=== PATIENT | female | born 1960 | race Caucasian/White ===

== ENCOUNTER 2017-09-18 18:12 | Observation (INO) | payer OTHER ==
[~2017-09-18] VITALS: Ht 154.9 cm; Wt 73.0 kg
[2017-09-18 18:20] VITALS: BP 188/91; PULSE 103; RESP 20; TEMP 98.2; O2SAT 96
--- NOTE | 2017-09-18 19:12 | RADRPT ---
EXAM DATE/TIME: 09/18/2017 18:56 [place] COMPARISON: CHEST SINGLE AP, October 28, 2014, 20:34. INDICATIONS : Shortness of breath, cough, and congestion. MEDICAL HISTORY : Smoker. SURGICAL HISTORY : None. ENCOUNTER: Initial ACUITY: 1 week PAIN SCORE: 2/10 LOCATION: Bilateral chest FINDINGS: PA and lateral views of the chest demonstrate the lungs to be symmetrically aerated without evidence of mass, infiltrate or effusion. The cardiomediastinal contours are unremarkable. Osseous structure s are intact. CONCLUSION: No evidence of acute cardiopulmonary disease. Vinod Mcintyre MD on September 18, 2017 at 19:09 Board Certified Radiologist. This report was verified electronically.
[2017-09-18] MEDS ORDERED: methylPREDNISolone SOD SUCC 125 MG/2 ML VIAL IV PUSH ONE (22:15)
[2017-09-18] MEDS ORDERED: LORazepam 2 MG/ML VIAL IV PUSH ONE (22:15)
[2017-09-18] MEDS ORDERED: SODIUM CHLOR 0.9% 1000 ML INJ 1,000 ML IV ONE (22:15)
[2017-09-18 22:21] VITALS: RESP 14; O2SAT 94
[2017-09-18 22:22] VITALS: BP 130/70; PULSE 86; RESP 18; O2SAT 96
[2017-09-18 22:37] VITALS: O2SAT 95
[2017-09-18] MEDS: RESP: ALBUTEROL 2.5 MG/IPRATROPIUM 0.5 MG NEB (SCH) INH (22:37)
--- NOTE | 2017-09-18 22:45 | PD ---
HPI Chief Complaint: Medical Clearance Time Seen by Provider: 22:08 Travel History International Travel<30 days: No Contact w/Intl Traveler<30days: No Traveled to known affect area: No History of Present Illness HPI 56-year-old female arrives to the ER due to shaking, palpitations diaphoresis and anxiety all of which occurred after she ingested prednisone and amoxicillin a few hours prior to ER arrival. Yesterday she was seen and evaluated in urgent care facility and diagnosed with an upper respiratory tract infection and was prescribed prednisone and amoxicillin. She took the medications yesterday and was asymptomatic thereafter. Evidently there was some concern about the EKG obtained yesterday which I reviewed and does not show any acute ischemic injury pattern or arrhythmia. The patient has no chest pain at the time of evaluation however c/o sob. Patient has a history of smoking at least [id number] history and smokes about 1 pack a day. She has been smoking less over the last few days. PFSH Past Medical History Cancer: Yes (cervical ) Cerebrovascular Accident: Yes (TIA ABOUT 2 YEARS) Hypertension: Yes (MD DISCONTINUE HOME BP MEDS ABOUT 4 YEARS AGO) Tetanus Vaccination: Unknown Influenza Vaccination: No ?: Not Past Surgical History Section: Yes (2) Gynecologic Surgery: Yes ( x2, hysterectomy, cervical ca) Hysterectomy: Yes Other Surgery: Yes (I&D BILATERAL AXILLA FOR MRSA) Social History Alcohol Use: No Tobacco Use: Yes (1/2 PPD) Substance Use: No Allergies-Medications (Allergen,Severity, Reaction): Coded Allergies: No Known Allergies (Unverified Adverse Reaction, Unknown, 09/18/17) Reported Meds & Prescriptions Reported Meds & Active Scripts Active No Active Prescriptions or Reported Medications Review of Systems Except as stated in HPI: all other systems reviewed are Neg General / Constitutional: No: Fever Physical Exam Narrative GENERAL: 56-year-old female pleasant well-nourished well-developed mildly anxious Vital Signs Date Time Temp Pulse Resp B/P (MAP) Pulse Ox O2 Delivery O2 Flow Rate FiO2 09/18/17 22:22 86 18 130/70 (90) 96 Room Air 09/18/17 22:22 85 15 09/18/17 22:21 95 Room Air 09/18/17 22:21 14 94 Room Air 09/18/17 18:20 98.2 103 20 188/91 (123) 96 SKIN: Warm and dry. HEAD: Atraumatic. Normocephalic. EYES: Pupils equal and round. No scleral icterus. No injection or drainage. ENT: No nasal bleeding or discharge. Mucous membranes pink and moist. NECK: Trachea midline. No JVD. CARDIOVASCULAR: Regular rate and rhythm. RESPIRATORY: Lungs are clear. Respiratory rate is about 20. GASTROINTESTINAL: Abdomen soft, non-tender, nondistended. Hepatic and splenic margins not palpable. MUSCULOSKELETAL: Extremities without clubbing, cyanosis, or edema. No obvious deformities. NEUROLOGICAL: Awake and alert. No obvious cranial nerve deficits. Motor grossly within normal limits. Five out of 5 muscle strength in the arms and legs. Normal speech. PSYCHIATRIC: Appropriate mood and affect; insight and judgment normal. Data Data Last Documented VS Vital Signs Date Time Temp Pulse Resp B/P (MAP) Pulse Ox O2 Delivery O2 Flow Rate FiO2 09/18/17 22:37 95 21 09/18/17 22:22 86 18 130/70 (90) Room Air 09/18/17 18:20 98.2 Orders Orders Electrocardiogram (09/18/17 18:43) Complete Blood Count With Diff (09/18/17 18:43) Basic Metabolic Panel (Bmp) (09/18/17 18:43) Ckmb (Isoenzyme) Profile (09/18/17 18:43) Troponin I (09/18/17 18:43) Iv Access Insert/Monitor (09/18/17 18:43) Ecg Monitoring (09/18/17 18:43) Oxygen Administration (09/18/17 18:43) Oximetry (09/18/17 18:43) Chest, Pa & Lat (09/18/17 18:43) Sodium Chlor 0.9% 1000 Ml Inj (Ns 1000 M (09/18/17 22:15) Methylprednisolone So Succ Inj (Solumedr (09/18/17 22:15) Albuterol-Ipratropium Neb (Duoneb Neb) (09/18/17 22:15) Lorazepam Inj (Ativan Inj) (09/18/17 22:15) CKMB (09/18/17 20:30) CKMB% (09/18/17 20:30) Albuterol Neb (Albuterol Neb) (09/19/17 00:00) Nitroglycerin Sl (Nitrostat Sl) (09/19/17 00:00) Labs Laboratory Tests Test 09/18/17 20:30 White Blood Count 14.6 TH/MM3 Red Blood Count 4.73 MIL/MM3 Hemoglobin 15.4 GM/DL Hematocrit 44.4 % Mean Corpuscular Volume 93.8 FL Mean Corpuscular Hemoglobin 32.5 PG Mean Corpuscular Hemoglobin Concent 34.6 % Red Cell Distribution Width 12.7 % Platelet Count 215 TH/MM3 Mean Platelet Volume 9.8 FL Neutrophils (%) (Auto) 86.6 % Lymphocytes (%) (Auto) 11.4 % Monocytes (%) (Auto) 1.7 % Eosinophils (%) (Auto) 0.1 % Basophils (%) (Auto) 0.2 % Neutrophils # (Auto) 12.6 TH/MM3 Lymphocytes # (Auto) 1.7 TH/MM3 Monocytes # (Auto) 0.2 TH/MM3 Eosinophils # (Auto) 0.0 TH/MM3 Basophils # (Auto) 0.0 TH/MM3 CBC Comment DIFF FINAL Differential Comment Blood Urea Nitrogen 16 MG/DL Creatinine 0.82 MG/DL Random Glucose 146 MG/DL Calcium Level 9.0 MG/DL Sodium Level 141 MEQ/L Potassium Level 4.1 MEQ/L Chloride Level 107 MEQ/L Carbon Dioxide Level 24.0 MEQ/L Anion Gap 10 MEQ/L Estimat Glomerular Filtration Rate 73 ML/MIN Total Creatine Kinase 122 U/L Creatine Kinase MB 2.9 NG/ML Troponin I LESS THAN 0.02 NG/ML MDM Medical Decision Making Medical Screen Exam Complete: Yes Emergency Medical Condition: Yes Medical Record Reviewed: Yes Differential Diagnosis Pneumonia, anxiety, steroid side effect, side effect amoxicillin, URI Narrative Course EKG shows sinus rhythm at a rate of 81 normal axis intervals CBC & BMP Diagram 09/18/17 20:30 Calcium Level 9.0 Chest x-ray shows no dense consolidation or acute pulmonary disease. The patient received 2 rounds of albuterol here and was fairly dyspneic thereafter. She ambulated in the pod. The family member attached a nonrebreather to oxygen and kept on oxygen for about 30 or 40 minutes prior to the ambulation. Upon return to her bed the O2 sat was 94% however she was quite dyspneic with a heart rate of about 120. Patient will be kept here for serial enzymes and breathing treatments as needed. Case was discussed with Dr. Bravo. Diagnosis Primary Impression: Chest pain, atypical Additional Impressions: Anxiety Dyspnea and respiratory abnormalities Palpitations Admitting Information Admitting Physician Requests: Observation Scripts No Active Prescriptions or Reported Meds Rodri Hendrickson MD Sep 18, 2017 22:45
[2017-09-18 23:00] LABS: AUTOMATED NEUTROPHIL # 12.6 TH/MM3 (1.8-7.7); BASOPHIL % 0.2 % (0.0-2.0); EOSINOPHIL % 0.1 % (0.0-4.0); HEMATOCRIT 44.4 % (35.0-46.0); HEMOGLOBIN 15.4 GM/DL (11.6-15.3); LYMPH % 11.4 % (9.0-44.0); LYMPHOCYTE # 1.7 TH/MM3 (1.0-4.8); MEAN CELL VOLUME 93.8 FL (80.0-100.0); MEAN CORPUSCULAR HEMOGLOBIN 32.5 PG (27.0-34.0); MEAN CORPUSCULAR HGB CONC 34.6 % (32.0-36.0); MEAN PLATELET VOLUME 9.8 FL (7.0-11.0); MONO % 1.7 % (0.0-8.0); MONOCYTE # 0.2 TH/MM3 (0-0.9); NEUT % 86.6 % (16.0-70.0); PLATELET COUNT 215 TH/MM3 (150-450); RED BLOOD COUNT 4.73 MIL/MM3 (4.00-5.30); RED CELL DISTRIBUTION WIDTH 12.7 % (11.6-17.2); WHITE BLOOD COUNT 14.6 TH/MM3 (4.0-11.0)
[2017-09-18 23:14] LABS: BLOOD UREA NITROGEN 16 MG/DL (7-18); CHLORIDE 107 MEQ/L (98-107); CREATININE 0.82 MG/DL (0.50-1.00); GLOMERULAR FILTRATION RATE 73 ML/MIN (>89); GLUCOSE,RANDOM 146 MG/DL (74-106); SODIUM (NA) 141 MEQ/L (136-145)
[2017-09-18 23:17] LABS: TROPONIN I LESS THAN 0.02 NG/ML (0.02-0.05)
[2017-09-19] VITALS (15 sets, daily range): BP systolic 89–124; BP diastolic 48–80; PULSE 86–113; RESP 16–20; TEMP 97.8–98.6; O2SAT 93–98
[2017-09-19] MEDS ORDERED: NITROGLYCERIN 0.4 MG SL 25 TABS/BTL SL ONE
[2017-09-19] MEDS ORDERED: RESP: ALBUTEROL 2.5 MG/3 ML NEB (SCH) INH ONE
[2017-09-19] MEDS ORDERED: ONDANSETRON HCL 4 MG/2 ML VIAL IVP PRN (02:15)
[2017-09-19] MEDS ORDERED: NALOXONE HCL 0.4 MG/ML AMP IV PUSH PRN (02:15)
[2017-09-19] MEDS: RESP: ALBUTEROL 2.5 MG/IPRATROPIUM 0.5 MG NEB (SCH) NEB ×4 (03:05→20:19)
[2017-09-19 03:31] LABS: AUTOMATED NEUTROPHIL # 9.7 TH/MM3 (1.8-7.7); BASOPHIL % 0.2 % (0.0-2.0); HEMOGLOBIN 14.4 GM/DL (11.6-15.3); LYMPH % 7.8 % (9.0-44.0); LYMPHOCYTE # 0.8 TH/MM3 (1.0-4.8); MEAN CELL VOLUME 95.5 FL (80.0-100.0); MEAN CORPUSCULAR HEMOGLOBIN 32.8 PG (27.0-34.0); MEAN CORPUSCULAR HGB CONC 34.4 % (32.0-36.0); MEAN PLATELET VOLUME 9.4 FL (7.0-11.0); MONO % 0.8 % (0.0-8.0); MONOCYTE # 0.1 TH/MM3 (0-0.9); NEUT % 91.2 % (16.0-70.0); PLATELET COUNT 180 TH/MM3 (150-450); RED BLOOD COUNT 4.39 MIL/MM3 (4.00-5.30); RED CELL DISTRIBUTION WIDTH 12.7 % (11.6-17.2); WHITE BLOOD COUNT 10.6 TH/MM3 (4.0-11.0)
--- NOTE | 2017-09-19 04:37 | HHI.HP ---
HPI Service [facility] Primary Care Physician Unknown Admission Diagnosis Dyspnea; Palpitations Diagnoses: Travel History International Travel<30 Days: No Contact w/Intl Traveler <30 Da: No Traveled to Known Affected Are: No History of Present Illness 56-year-old female with a past medical history significant for hyperlipidemia presents to the emergency department for evaluation of chest pain/palpitations. The patient was seen by urgent care on 09/17 where she was diagnosed with bronchitis and given a prescription for amoxicillin and prednisone. The patient reports compliance with these medications for 2 days and on the second day, yesterday, after taking both medications the patient noticed chest pain and heaviness with palpitations. The patient also reports that she had an abnormal EKG at the urgent care center. She states she was instructed to come to the emergency department from urgent care, however did not feel this was necessary at the time. She denies nausea/vomiting. No shortness of breath. No fevers/chills. URI symptoms since mid July. Review of Systems Except as stated in HPI: all other systems reviewed are Neg Past Family Social History Past Medical History Hyperlipidemia Past Surgical History 2 Hysterectomy Reported Medications Reported Meds & Active Scripts Active No Active Prescriptions or Reported Medications Allergies: Coded Allergies: No Known Allergies (Unverified Allergy, Unknown, 09/19/17) Family History Both parents with CAD, mom with diabetes Social History Smokes approximately one pack per day. Denies alcohol and illicit drugs. Physical Exam Vital Signs Vital Signs Date Time Temp Pulse Resp B/P (MAP) Pulse Ox O2 Delivery O2 Flow Rate FiO2 09/19/17 02:52 18 09/19/17 02:30 97.8 109 20 105/55 (72) 94 09/19/17 02:12 106 16 89/48 (62) 93 Nasal Cannula 2.00 09/19/17 00:00 106 20 116/80 (92) 94 Room Air 09/18/17 22:37 95 21 09/18/17 22:22 86 18 130/70 (90) 96 Room Air 09/18/17 22:22 85 15 09/18/17 22:21 95 Room Air 09/18/17 22:21 14 94 Room Air 09/18/17 18:20 98.2 103 20 188/91 (123 96 Physical Exam GENERAL: female lying in bed SKIN: No rashes, ecchymoses or lesions. Cool and dry. HEAD: Atraumatic. Normocephalic. No temporal or scalp tenderness. EYES: Pupils equal round and reactive. Extraocular motions intact. No scleral icterus. No injection or drainage. ENT: Nose without bleeding, purulent drainage or septal hematoma. Throat without erythema, tonsillar hypertrophy or exudate. Uvula midline. Airway patent. NECK: Trachea midline. No JVD or lymphadenopathy. Supple, nontender, no meningeal signs. CARDIOVASCULAR: Regular rate and rhythm without murmurs, gallops, or rubs. RESPIRATORY: Clear to auscultation. Breath sounds equal bilaterally. No wheezes , rales, or rhonchi. GASTROINTESTINAL: Abdomen soft, non-tender, nondistended. No hepato-splenomegaly , or palpable masses. No guarding. MUSCULOSKELETAL: Extremities without clubbing, cyanosis, or edema. No joint tenderness, effusion, or edema noted. No calf tenderness. NEUROLOGICAL: Awake and alert. Cranial nerves II through XII intact. Motor and sensory grossly within normal limits. Normal speech. Laboratory Laboratory Tests Test 09/18/17 20:30 09/19/17 03:21 White Blood Count 14.6 10.6 Red Blood Count 4.73 4.39 Hemoglobin 15.4 14.4 Hematocrit 44.4 42.0 Mean Corpuscular Volume 93.8 95.5 Mean Corpuscular Hemoglobin 32.5 32.8 Mean Corpuscular Hemoglobin Concent 34.6 34.4 Red Cell Distribution Width 12.7 12.7 Platelet Count 215 180 Mean Platelet Volume 9.8 9.4 Neutrophils (%) (Auto) 86.6 91.2 Lymphocytes (%) (Auto) 11.4 7.8 Monocytes (%) (Auto) 1.7 0.8 Eosinophils (%) (Auto) 0.1 0.0 Basophils (%) (Auto) 0.2 0.2 Neutrophils # (Auto) 12.6 9.7 Lymphocytes # (Auto) 1.7 0.8 Monocytes # (Auto) 0.2 0.1 Eosinophils # (Auto) 0.0 0.0 Basophils # (Auto) 0.0 0.0 CBC Comment DIFF FINAL DIFF FINAL Differential Comment Blood Urea Nitrogen 16 Creatinine 0.82 Random Glucose 146 Calcium Level 9.0 Sodium Level 141 Potassium Level 4.1 Chloride Level 107 Carbon Dioxide Level 24.0 Anion Gap 10 Estimat Glomerular Filtration Rate 73 Total Creatine Kinase 122 Creatine Kinase MB 2.9 Troponin I LESS THAN 0.02 LESS THAN 0.02 Result Diagram: 09/19/17 0321 09/18/172029 Caprini VTE Risk Assessment Caprini VTE Risk Assessment: No/Low Risk (score <= 1) Caprini Risk Assessment Model Point Value = 1 Point Value = 2 Point Value = 3 Point Value = 5 Age 41-60 Minor surgery BMI > 25 kg/m2 Swollen legs Varicose veins or History of unexplained or recurrent spontaneous Oral contraceptives or hormone replacement Sepsis (< 1 month) Serious lung disease, including pneumonia (< 1 month) Abnormal pulmonary function Acute myocardial infarction Congestive heart failure (< 1 month) History of inflammatory bowel disease Medical patient at bed rest Age 61-74 Arthroscopic surgery Major open surgery (> 45 min) Laparoscopic surgery (> 45 min) Malignancy Confined to bed (> 72 hours) Immobilizing plaster cast Central venous access Age >= 75 History of VTE Family history of VTE Factor V Leiden Prothrombin [id number] Lupus anticoagulant Anticardiolipin antibodies Elevated serum homocysteine Heparin-induced thrombocytopenia Other congenital or acquired thrombophilia Stroke (< 1 month) Elective arthroplasty Hip, pelvis, or leg fracture Acute spinal cord injury (< 1 month) Prophylaxis Regimen Total Risk Factor Score Risk Level Prophylaxis Regimen 0-1 Low Early ambulation 2 Moderate Order ONE of the following: *Sequential Compression Device (SCD) *Heparin 5000 units SQ BID 3-4 Higher Order ONE of the following medications: *Heparin 5000 units SQ TID *Enoxaparin/Lovenox 40 mg SQ daily (WT < 150 kg, CrCl > 30 mL/min) *Enoxaparin/Lovenox 30 mg SQ daily (WT < 150 kg, CrCl > 10-29 mL/min) *Enoxaparin/Lovenox 30 mg SQ BID (WT < 150 kg, CrCl > 30 mL/min) AND/OR *Sequential Compression Device (SCD) 5 or more Highest Order ONE of the following medications: *Heparin 5000 units SQ TID (Preferred with Epidurals) *Enoxaparin/Lovenox 40 mg SQ daily (WT < 150 kg, CrCl > 30 mL/min) *Enoxaparin/Lovenox 30 mg SQ daily (WT < 150 kg, CrCl > 10-29 mL/min) *Enoxaparin/Lovenox 30 mg SQ BID (WT < 150 kg, CrCl > 30 mL/min) AND *Sequential Compression Device (SCD) Assessment and Plan Assessment and Plan Assessment/plan: 1. Chest pain/palpitations Likely response to oral steroids ACS rule out pending; serial troponins/EKGs EKG shows sinus rhythm without ST segment elevations or depressions, personally reviewed Initial troponin negative x 2 Telemetry 2. Shortness of breath/upper respiratory infection Likely secondary to viral upper respiratory infection Influenza pending Chest x-ray negative for acute disease, personally reviewed Leukocytosis has resolved 3. Hyperlipidemia Patient reports she is not on any home medications at this time because she did not refill her prescription Counseled patient to follow-up with her PCP and start taking her statin FEN Heart healthy diet Electrolytes: Monitor and replete when necessary SCDs Pushpa Bravo MD Sep 19, 2017 04:36
[2017-09-19] MEDS: guaiFENesin E.R. 600 MG TAB PO SCH ×2 (10:28→23:12)
[2017-09-19 15:19] LABS: CHOLESTEROL/ HDL RATIO 5.15 RATIO; HDL CHOLESTEROL 44.8 MG/DL (40.0-60.0)
--- NOTE | 2017-09-19 15:26 | HHI.PR ---
Subjective Remarks Follow-up visit chest pain, cough, tobacco use. Patient seen and examined today sitting in bed. Patient reports she continues to have cough, chest pain and palpitations especially post nebulization. She also mentioned increased anxiety post nebulization. Patient states that she has been coughing. Denies any fever, chills, nausea, vomiting, diarrhea. Reports generalized fatigue. States she is unable to "walk from the with wheelchair to her bed without feeling very very tired." Denies dysuria, hematuria. Occasional S OB and dyspnea on exertion. States she is not expectorating anything from her cough. Objective Vitals Vital Signs Date Time Temp Pulse Resp B/P (MAP) Pulse Ox O2 Delivery O2 Flow Rate FiO2 09/19/17 12:27 98.0 113 20 119/58 (78) 96 09/19/17 08:07 98 Nasal Cannula 2.00 09/19/17 08:00 98 Nasal Cannula 2.00 09/19/17 08:00 97.9 95 16 111/57 (75) 95 09/19/17 06:55 105 09/19/17 04:45 96 Nasal Cannula 2.00 09/19/17 04:00 98.0 102 20 101/50 (67) 96 09/19/17 02:52 18 09/19/17 02:30 97.8 109 20 105/55 (72) 94 09/19/17 02:12 106 16 89/48 (62) 93 Nasal Cannula 2.00 09/19/17 00:00 106 20 116/80 (92) 94 Room Air 09/18/17 22:37 95 21 09/18/17 22:22 86 18 130/70 (90) 96 Room Air 09/18/17 22:22 85 15 09/18/17 22:21 95 Room Air 09/18/17 22:21 14 94 Room Air 09/18/17 18:20 98.2 103 20 188/91 (123) 96 I/O 09/18/17 09/18/17 09/18/17 09/19/17 09/19/17 09/19/17 07:00 15:00 23:00 07:00 15:00 23:00 Intake Total 1000 ml Balance 1000 ml Intake IV Total 1000 ml Result Diagram: 09/19/17 0321 09/18/172029 Imaging Last Impressions Chest X-Ray 09/18/17 1301 Signed Impressions: Service Date/Time: September 18:56 - CONCLUSION: No evidence of acute cardiopulmonary disease. Vinod Mcintyre MD Objective Remarks GENERAL: This is a well-nourished, well-developed patient, in no apparent distress. SKIN: Warm and dry. HEENT: Normocephalic. Pupils equal round and reactive. Nose without bleeding. Airway patent. NECK: Trachea midline. CARDIOVASCULAR: Tachycardia without murmurs, gallops, or rubs. RESPIRATORY: Bronchial breath sounds. No wheezes, rales, or rhonchi. GASTROINTESTINAL: Abdomen soft, non-tender, nondistended. Bowel Sounds normoactive x4. MUSCULOSKELETAL: Extremities without clubbing, cyanosis, or edema. NEUROLOGICAL: Awake and alert. Oriented to time, place, person. No focal neuro deficit. Moves all extremities. Normal speech. A/P Problem List: (1) Chest pain, atypical ICD Code: R07.89 - Chest pain, atypical Status: Acute (2) Anxiety ICD Code: F41.9 - Anxiety Status: Acute (3) Dyspnea and respiratory abnormalities ICD Code: R06.00 - Dyspnea, unspecified; R06.89 - Other abnormalities of breathing Status: Acute (4) Palpitations ICD Code: R00.2 - Palpitations Status: Acute Assessment and Plan Patient is 56-year-old female with a past medical history significant for hyperlipidemia presents hospital for evaluation of chest pain/palpitations. Chest pain, palpitations Rule out ACS -Palpitations possibly responds to steroid medication and albuterol nebs/ -Serial troponin negative -EKG reviewed sinus rhythm without ST segment elevations or depressions. -Continue telemetry for now -Appears to be musculoskeletal in nature as it is aggravated by coughing, reproducible with palpation. Shortness of breath, upper respiratory infection Underlying COPD, with possible exacerbation secondary to infection This could possibly be viral respiratory infection Generalized fatigue -Check influenza -Chest x-ray showed no acute disease -Leukocytosis on initial labs, repeat labs it has resolved -Start Symbicort twice daily, nicotine patch -Duo nebs, will decrease albuterol dose -Prednisone 20 mg twice daily 5 days -Monitor respiratory status. O2 nasal cannula keep O2 sat greater than 90% -PT eval and treat Hyperlipidemia -Start atorvastatin 40 mg daily if LFTs are within normal DVT prop SCDs Discharge Planning When clinically improved. Lisa Holm Sep 19, 2017 15:26
[2017-09-19] MEDS ORDERED: ACETAMINOPHEN 325 MG TAB PO PRN (16:00)
[2017-09-19] MEDS ORDERED: RESP: ALBUTEROL 2.5 MG/IPRATROPIUM 0.5 MG NEB (PRN) NEB (16:30)
[2017-09-19] MEDS: NICOTINE 21 MG/24 HR PATCH T-DERMAL SCH (17:31)
[2017-09-19 19:41] LABS: ALBUMIN 3.8 GM/DL (3.4-5.0); DIRECT BILIRUBIN ADULT 0.1 MG/DL (0.0-0.2)
[2017-09-19 19:43] LABS: INDIRECT BILIRUBIN 0.1 MG/DL (0.0-0.8); TOTAL BILIRUBIN ADULT 0.2 MG/DL (0.2-1.0); TOTAL PROTEIN 7.2 GM/DL (6.4-8.2)
[2017-09-19] MEDS: predniSONE 20 MG TAB PO SCH (23:12)
[2017-09-19] MEDS: BUDESONIDE-FORMOTEROL 160/4.5 MCG INHALER INH SCH (23:13)
[2017-09-20] MEDS: RESP: ALBUTEROL 2.5 MG/IPRATROPIUM 0.5 MG NEB (SCH) NEB ×2 (03:08→07:24)
[2017-09-20 03:57] VITALS: BP 107/53; PULSE 94; RESP 17; TEMP 98.4; O2SAT 95
[2017-09-20 04:00] VITALS: PULSE 95
[2017-09-20 07:15] VITALS: PULSE 92
[2017-09-20 08:09] VITALS: BP 138/62; PULSE 110; RESP 20; TEMP 98.6; O2SAT 98
[2017-09-20] MEDS ORDERED: REMOVE OLD PATCH T-DERMAL SCH (09:00)
[2017-09-20] MEDS: guaiFENesin E.R. 600 MG TAB PO SCH (09:09)
[2017-09-20] MEDS: predniSONE 20 MG TAB PO SCH (09:09)
[2017-09-20] MEDS: NICOTINE 21 MG/24 HR PATCH T-DERMAL SCH (09:10)
[2017-09-20] MEDS: BUDESONIDE-FORMOTEROL 160/4.5 MCG INHALER INH SCH (09:11)
[2017-09-20] MEDS ORDERED: Budeson-Formot 160-4.5 Mcg Inh INH (09:31)
[2017-09-20] MEDS ORDERED: NICO21DI25 T-DERMAL (09:31)
[2017-09-20] MEDS ORDERED: Remove Old Patch T-DERMAL (09:31)
[2017-09-20] MEDS ORDERED: PRED20 PO (09:31)
[2017-09-20] MEDS ORDERED: guaiFENesin ER PO (09:31)
--- NOTE | 2017-09-20 09:35 | HHI.DCPOC ---
Discharge Care Plan Diagnosis: (1) Chest pain, atypical (2) Anxiety (3) Dyspnea and respiratory abnormalities (4) Palpitations Your Health Problems Are: Shortness of Breath Goals to Promote Your Health * To prevent worsening of your condition and complications * To maintain your health at the optimal level Directions to Meet Your Goals Take your medications as prescribed Follow your dietary instruction Follow activity as directed Keep your appointments as scheduled Take your immunizations and boosters as scheduled If your symptoms worsen call your PCP, if no PCP go to Urgent Care Center or Emergency Room Smoking is Dangerous to Your Health. Avoid second hand smoke Call the 24-hour hour crisis hotline for domestic abuse at Lisa Holm Sep 20, 2017 09:34
[2017-09-20 10:11] LABS: AUTOMATED NEUTROPHIL # 13.3 TH/MM3 (1.8-7.7); BASOPHIL % 0.1 % (0.0-2.0); HEMATOCRIT 44.8 % (35.0-46.0); HEMOGLOBIN 15.1 GM/DL (11.6-15.3); LYMPH % 12.3 % (9.0-44.0); MEAN CELL VOLUME 96.4 FL (80.0-100.0); MEAN CORPUSCULAR HEMOGLOBIN 32.5 PG (27.0-34.0); MEAN CORPUSCULAR HGB CONC 33.7 % (32.0-36.0); MONO % 4.8 % (0.0-8.0); MONOCYTE # 0.8 TH/MM3 (0-0.9); NEUT % 82.8 % (16.0-70.0); PLATELET COUNT 205 TH/MM3 (150-450); RED BLOOD COUNT 4.64 MIL/MM3 (4.00-5.30); RED CELL DISTRIBUTION WIDTH 12.7 % (11.6-17.2)
--- NOTE | 2017-09-20 10:30 | HHI.DS ---
Discharge Summary Admission Date Sep 19, 2017 at 00:31 Discharge Date: Sep 20, 2017 Admitting Diagnosis Dyspnea; Palpitations (1) Chest pain, atypical ICD Code: R07.89 - Chest pain, atypical Status: Acute (2) Anxiety ICD Code: F41.9 - Anxiety Status: Acute (3) Dyspnea and respiratory abnormalities ICD Code: R06.00 - Dyspnea, unspecified; R06.89 - Other abnormalities of breathing Status: Acute (4) Palpitations ICD Code: R00.2 - Palpitations Status: Acute Procedures none Brief History - From Admission 56-year-old female with a past medical history significant for hyperlipidemia presents to the emergency department for evaluation of chest pain/palpitations. The patient was seen by urgent care on 09/17 where she was diagnosed with bronchitis and given a prescription for amoxicillin and prednisone. The patient reports compliance with these medications for 2 days and on the second day, yesterday, after taking both medications the patient noticed chest pain and heaviness with palpitations. The patient also reports that she had an abnormal EKG at the urgent care center. She states she was instructed to come to the emergency department from urgent care, however did not feel this was necessary at the time. She denies nausea/vomiting. No shortness of breath. No fevers/chills. URI symptoms since mid July. CBC/BMP: 09/20/17 0930 09/18/17 2030 Significant Findings Laboratory Tests Test 09/18/17 20:30 09/19/17 03:21 09/19/17 10:35 09/20/17 09:30 White Blood Count 14.6 TH/MM3 (4.0-11.0) 16.0 TH/MM3 (4.0-11.0) Hemoglobin 15.4 GM/DL (11.6-15.3) Neutrophils (%) (Auto) 86.6 % (16.0-70.0) 91.2 % (16.0-70.0) 82.8 % (16.0-70.0) Neutrophils # (Auto) 12.6 TH/MM3 (1.8-7.7) 9.7 TH/MM3 (1.8-7.7) 13.3 TH/MM3 (1.8-7.7) Random Glucose 146 MG/DL (74-106) Estimat Glomerular Filtration Rate 73 ML/MIN (>89) Troponin I LESS THAN 0.02 NG/ML LESS THAN 0.02 NG/ML LESS THAN 0.02 NG/ML Lymphocytes (%) (Auto) 7.8 % (9.0-44.0) Lymphocytes # (Auto) 0.8 TH/MM3 (1.0-4.8) Cholesterol Level 231 MG/DL (120-200) LDL Cholesterol 167 MG/DL (0-99) Imaging Last Impressions Chest X-Ray 09/18/17 1843 Signed Impressions: Service Date/Time: September 18:56 - CONCLUSION: No evidence of acute cardiopulmonary disease. Vinod Mcintyre MD PE at Discharge GENERAL: This is a well-nourished, well-developed patient, in no apparent distress. SKIN: Warm and dry. HEENT: Normocephalic. Pupils equal round and reactive. Nose without bleeding. Airway patent. NECK: Trachea midline. CARDIOVASCULAR: Tachycardia without murmurs, gallops, or rubs. RESPIRATORY: Bronchial breath sounds. No wheezes, rales, or rhonchi. GASTROINTESTINAL: Abdomen soft, non-tender, nondistended. Bowel Sounds normoactive x4. MUSCULOSKELETAL: Extremities without clubbing, cyanosis, or edema. NEUROLOGICAL: Awake and alert. Oriented to time, place, person. No focal neuro deficit. Moves all extremities. Normal speech. Hospital Course Patient is 56-year-old female with a past medical history significant for hyperlipidemia presents hospital for evaluation of chest pain/palpitations. Chest pain, palpitations Rule out ACS -Palpitations possibly responds to steroid medication and albuterol nebs/ -Serial troponin negative -EKG reviewed sinus rhythm without ST segment elevations or depressions. -Continue telemetry for now -Appears to be musculoskeletal in nature as it is aggravated by coughing, reproducible with palpation. Shortness of breath, upper respiratory infection Underlying COPD, with possible exacerbation secondary to infection This could possibly be viral respiratory infection Generalized fatigue -Check influenza -Chest x-ray showed no acute disease -Leukocytosis on initial labs, repeat labs it has resolved -Start Symbicort twice daily, nicotine patch -Duo nebs, will decrease albuterol dose -Prednisone 20 mg twice daily 5 days -Monitor respiratory status. O2 nasal cannula keep O2 sat greater than 90% -PT eval and treat Hyperlipidemia -Start atorvastatin 40 mg daily if LFTs are within normal DVT prop SCDs Discharge Planning Patient improved . DC in stabl condition to follow up as Op with pCP and consultants Pt Condition on Discharge: Stable Discharge Disposition: Discharge Home Discharge Time: > 30 minutes Discharge Instructions DIET: Follow Instructions for: Heart Healthy Diet Activities you can perform: Regular-No Restrictions Follow up Referrals: PCP Follow-up - 2-3 Days Pulmonology - 2 Weeks New Medications: Albuterol 18 GM Inh (Ventolin Hfa 18 GM Inh) 90 Mcg/Act Aer 2 PUFF INH Q4-6H PRN for SHORTNESS OF BREATH, #1 INHALER 0 Refills Codeine-Chlorpheniramine ER Liq 12 HR (Tuzistra Xr Liq 12 HR) 14.7-2.8 Mg/5 Ml Susp 10 ML PO Q12H for Chest Congestion/Cough for 5 Days, #100 ML 0 Refills Fluticasone Nasal [place] (Flonase Nasal [place]) 50 Mcg/Act [place] 50 MCG EACH NARE BID for Allergies, #1 BOTTLE 0 Refills Ipratropium HFA 12.9 GM Inh (Atrovent HFA 12.9 GM Inh) 17 Mcg/Actuation Aer 2 PUFF INH Q6HR PRN for SHORTNESS OF BREATH, #1 INHALER 0 Refills Nicotine (Eq Nicotine) 21 Mg/24 Hour Dis 1 PATCH T-DERMAL DAILY for Tobacco Cessation, #30 PATCH Prednisone (Prednisone) 20 Mg Tab 20 MG PO BID for COPD for 4 Days, #8 TAB [Budeson-Formot 160-4.5 Mcg Inh] () 60 PUFF AERO 1 PUFF INH Q12HR for COPD, #1 INHALER [guaiFENesin ER] () 600 MG TABCR 600 MG PO BID, #15 TAB [Remove Old Patch] () MISC 1 T-DERMAL DAILY Maria Esther Kessler MD Sep 20, 2017 10:30
[2017-09-20 10:34] LABS: BICARBONATE 23.8 MEQ/L (21.0-32.0); CREATININE 0.92 MG/DL (0.50-1.00)
[2017-09-20] MEDS ORDERED: CODE1SUS PO (11:01)
[2017-09-20] MEDS ORDERED: FLUT1SPR5 EACH NARE (11:01)
[2017-09-20] MEDS ORDERED: VENTAER INH (11:04)
[2017-09-20] MEDS ORDERED: IPRA17I INH (11:04)
--- NOTE | 2017-09-20 17:51 | EKG ---
Date Performed: 09/18/2017 Time Performed: 22:29:08 PTAGE: 56 years EKG: Sinus rhythm NORMAL ECG Since PREVIOUS TRACING , no significant change noted PREVIOUS TRACIN10/28/2014 23.57 DOCTOR: Harinder Tamez Interpretating Date/Time 09/20/2017 17:50:59
== END 2017-09-20 11:54 | disposition home or self-care (01) ==
LOC: NEPC 18:12 → NEDA 09-19 00:31 → NEDH 09-19 03:28 → NEPFCDU 09-19 15:03
PROVIDERS: ADMIT Hospitalist; ATTEND Hospitalist
DX: R07.89 Other chest pain (principal); R00.2 Palpitations; R00.0 Tachycardia, unspecified; R06.02 Shortness of breath; J06.9 Acute upper respiratory infection, unspecified; E78.5 Hyperlipidemia, unspecified; J44.9 Chronic obstructive pulmonary disease, unspecified; F41.9 Anxiety disorder, unspecified; F17.200 Nicotine dependence, unspecified, uncomplicated; Z86.73 Personal history of transient ischemic attack (TIA), and cerebral infarction without residual deficits
CPT/HCPCS: 71046; 80048; 80061; 80076; 82550; 82552; 84484; 85025; 87804; 93005; 94640; 94664; 96361; 96374; 96375; 99285; G0378; J2060; J2930; J7030; J7512; J7613